=== PATIENT | male | born 2000 | race Caucasian/White ===

== ENCOUNTER 2019-09-18 20:24 | Emergency (ER) | payer OTHER, BC ==
[2019-09-18] MEDS: Sodium Chloride 0.9% 10 ML Syringe FLUSH PRN (20:52)
[2019-09-18 22:13] VITALS: BP 140/90; PULSE 85
--- NOTE | 2019-09-19 09:30 | CT ---
CLINICAL DATA: BLUNT FORCE TRAUMA. UNENHANCED BRAIN CT 18 SEPTEMBER 2019: Multislice axial acquisition was performed. No priors. No masses or mass effect. No intracranial hemorrhage. No evidence of acute or subacute infarct. No fractures. IMPRESSION: No acute intracranial abnormalities. Job: [id number] MTDD
--- NOTE | 2019-09-19 09:32 | CT ---
CLINICAL DATA: TRAUMA. CERVICAL SPINE CT, 18 SEPTEMBER 2019: Multislice axial acquisition was performed. Axial images and sagittal and coronal reformations are reviewed. No acute fracture or dislocation. No lytic or blastic bone lesions. The soft tissues are unremarkable. The visualized lung apices are clear. IMPRESSION: No acute abnormalities. Job: [id number] MTDD
== END 2019-09-18 22:38 ==
LOC: LB.ED 20:24
DX: S09.90XA Unspecified injury of head, initial encounter (principal); H53.2 Diplopia; R53.1 Weakness; W22.8XXA Striking against or struck by other objects, initial encounter; Y93.89 Activity, other specified
CPT/HCPCS: 70450; 72125; 99285-25; A0425; A0429